=== PATIENT | female | born 1950 | race Caucasian/White ===

== ENCOUNTER 2016-07-10 09:44 | Outpatient (CLI) | payer OTHER ==
[2016-03-23 22:34] VITALS: BP 136/58
== END 2016-07-10 10:00 ==
LOC: LAB 09:44
PROVIDERS: ATTEND Family Medicine
DX: E11.9 Type 2 diabetes mellitus without complications (principal)
CPT/HCPCS: 36415; 83036

== ENCOUNTER 2016-07-23 15:16 | Outpatient (CLI) | payer OTHER ==
[2016-03-23 22:34] VITALS: BP 136/58
[2016-07-23 16:03] LABS: eGFR (African) > 60; eGFR (Non-African) 43
== END 2016-07-23 15:17 ==
LOC: LAB 15:16
PROVIDERS: ATTEND Internal Medicine Nephrology
DX: N18.9 Chronic kidney disease, unspecified (principal); E21.3 Hyperparathyroidism, unspecified
CPT/HCPCS: 36415; 80053; 83970

== ENCOUNTER 2016-07-28 13:48 | Outpatient (CLI) | payer OTHER ==
[2016-03-23 22:34] VITALS: BP 136/58
== END 2016-07-28 14:00 ==
LOC: NEPHRO 13:48
PROVIDERS: ATTEND Internal Medicine Nephrology
DX: N18.2 Chronic kidney disease, stage 2 (mild) (principal); E21.3 Hyperparathyroidism, unspecified
CPT/HCPCS: G0463

== ENCOUNTER 2016-08-17 10:51 | Emergency (ER) | payer OTHER ==
[2016-08-17] MEDS ORDERED: guaiFENesin/CODEINE PHOS 30ML BOTTLE PO ONE (11:52)
[2016-08-17] MEDS ORDERED: ONDANSETRON HCL/PF 4 MG/ 2ML VIAL IVP ONE (11:52)
[2016-08-17] MEDS ORDERED: 0.9 % SODIUM CHLORIDE 1,000 ML IV ONE (11:52)
[2016-08-17 12:53] LABS: BASOPHILS % 0.7 (0.0-1.5); EOSINOPHILS % 3.3 % (0.0-6.8); LYMPHOCYTES # 3.8 # k/uL (0.6-4.0); MEAN CORPUSCULAR HEMOGLOBIN 29.2 pg (28.0-34.0); MONOCYTES # 0.4 # k/uL (0.0-0.9); MONOCYTES % 3.5 % (0.0-11.0); NEUTROPHILS # 5.7 # k/uL (1.4-7.7)
[2016-08-17 13:11] LABS: eGFR (African) > 60; eGFR (Non-African) 43
--- NOTE | 2016-08-17 13:20 | ED Physician Documentation ---
General Adult - HISTORIAN Historian: patient - HPI Stated Complaint: cough, congestion Chief Complaint: General Adult Further Comments: yes (66 year old female patient presents complaints of cough, congestion, diarrhea, weakness, fatigue and fever for the past 3-4 days. States she has been able to eat, but has nausea with POs.) - ROS CONST: fever, weakness, chills. denies: no problems EYES/ENT: sore throat, nasal drainage, nasal congestion. denies: problems with vision CVS/RESP: cough GI/: nausea, diarrhea. denies: abdominal pain, problems urinating, vomiting MS/SKIN/LYMPH: none NEURO/PSYCH: headache, dizziness. denies: difficulty walking, difficulty with speech, anxiety, depression - PAST HX Past History: hypertension Other History: other (depression, anxiety, OA) Surgeries/Procedures: cholecystectomy, hysterectomy Allergies/Adverse Reactions: Allergies Allergy/AdvReac Type Severity Reaction Status Date / Time adhesive Allergy Verified 03/23/16 21:43 meperidine HCl [From Demerol] Allergy Verified 08/17/16 11:50 trazodone Allergy somnolence Verified 03/23/16 21:43 and hand swelling Home Medications: Ambulatory Orders Medication Instructions Recorded Ergocalciferol (Vitamin D2) 400 unit PO 08/17/16 [Vitamin D] Meloxicam [Mobic] 7.5 mg PO 08/17/16 Ondansetron HCl Rapdis [Zofran Odt] 4 mg PO Q6 #15 tab 08/17/16 - SOCIAL HX Smoking History: non-smoker - FAMILY HX Family History: No - VITAL SIGNS Vital Signs: Vital Signs Temp Pulse Resp BP Pulse Ox 97.8 F 87 18 179/80 97 08/17/16 10:55 08/17/16 10:55 08/17/16 10:55 08/17/16 10:55 08/17/16 10:55 - REVIEWED ASSESSMENTS Nursing Assessment Reviewed: Yes Vitals Reviewed: Yes Progress - Progress Progress: Patient had Flu shot in Apr 2016 ED Results Lab/Radiology - Lab Results Lab Results: Lab Results 08/17/16 08/17/16 08/17/16 12:50 12:50 11:45 WBC 10.70 K/ul K/ul (4.00-12.00) RBC 4.81 M/ul M/ul (3.90-5.20) Hgb 14.0 g/dL g/dL (12.0-16.0) Hct 43.9 % % (34.5-46.5) MCV 91.3 fl fl (80.0-100.0) MCH 29.2 pg pg (28.0-34.0) MCHC 32.0 g/dL g/dL (30.0-36.0) RDW 14.0 % % (11.3-14.3) Plt Count 318 K/mm3 K/mm3 (130-400) Neut % (Auto) 53.3 % % (39.0-79.0) Lymph % (Auto) 35.6 % % (16.0-50.0) [place] % (Auto) 3.5 % % (0.0-11.0) Eos % (Auto) 3.3 % % (0.0-6.8) Baso % (Auto) 0.7 (0.0-1.5) Neut # 5.7 # k/uL # k/uL (1.4-7.7) Lymph # 3.8 # k/uL # k/uL (0.6-4.0) [place] # 0.4 # k/uL # k/uL (0.0-0.9) Eos # 0.4 # k/uL # k/uL (0.0-0.6) Baso # 0.1 # k/uL # k/uL (0.0-0.5) Reactive Lymphs % 3.6 % % (0.0-5.0) Reactive Lymphs # 0.4 # k/uL # k/uL (0.0-0.8) Sodium 143 mmol/L mmol/L (136-145) Potassium 4.5 mmol/L mmol/L (3.5-5.0) Chloride 107 mmol/L mmol/L (98-110) Carbon Dioxide 30 mmol/L mmol/L (20-32) BUN 25 mg/dL mg/dL (10-26) Creatinine 1.3 mg/dL mg/dL (0.4-1.5) Estimated Creat Clear 67 Est GFR ( Amer) > 60 (60 - ) Est GFR (Non-Af Amer) 43 L (60 - ) Glucose 110 mg/dL H mg/dL (70-99) Calcium 9.7 mg/dL mg/dL (8.5-10.5) Total Bilirubin 0.3 mg/dL mg/dL (0.2-1.2) AST 20 U/L U/L (0-41) ALT 19 U/L U/L (0-45) Alkaline Phosphatase 87 U/L U/L (46-116) Total Protein 6.6 g/dL g/dL (6.0-8.5) Albumin 4.2 g/dL g/dL (3.0-5.5) Influenza Type A Ag Negative (NEGATIVE) Influenza Type B Ag Negative (NEGATIVE) - Orders Orders: ED Orders Category Date Time Status Place Saline Lock/IV NOW Care 08/17/16 11:52 Active CHEST 2 VIEW [CHEST P.A.&LAT 2 VIEWS] [RAD] Stat Exams 08/17/16 Taken CBC/PLATELET/DIFF Stat Lab 08/17/16 12:50 Completed CMP Stat Lab 08/17/16 12:50 Completed INFLUENZA A&B Stat Lab 08/17/16 11:45 Completed UA W/MICRO IF INDICATED Stat Lab 08/17/16 11:52 Ordered 0.9 % Sodium Chloride [Normal Saline] 1,000 ml Med 08/17/16 11:52 Discontinued IV NOW Ondansetron HCl/Pf [Zofran 4 mg/2 ml] Med 08/17/16 11:52 Discontinued 4 mg IVP NOW ONE guaiFENesin/CODEINE PHOS 30ML [Robitussin AC] Med 08/17/16 11:52 Discontinued 5 ml PO NOW ONE General Adult Physical Exam - PHYSICAL EXAM GENERAL APPEARANCE: mild distress EENT: eye inspection normal, ENT inspection normal, pharynx normal, no signs of dehydration, JUDE, no nystagmus, TM's nml RESPIRATORY: no resp distress, chest non-tender, breath sounds normal, other ( cough) CVS: reg rate & rhythm, heart sounds normal, equal pulses, no murmur, no gallop , PMI nml, no JVD, no friction rub, 24 ABDOMEN: soft, no organomegaly, normal bowel sounds, no abdominal bruit, no distension SKIN: normal color, warm/dry, NR, INT, PAL, DR EXTREMITIES: non-tender, normal range of motion, no evidence of injury, no edema , J, 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: oriented X3, CN's nml as tested, motor nml, sensation nml, mood/affect nml Discharge Clincal Impression: Viral syndrome, Cough, Nausea Prescriptions: Ondansetron HCl Rapdis [Zofran Odt] 4 mg PO Q6 #15 tab Referrals: Maurizio Mancera MD [Primary Care Provider] - 2 Days Additional Instructions: Diet: Clear liquids Sprite/7-up Juices apple, white grape Gatorade/Powerade Jello Popsicles When tolerating clear liquids, advance to bland diet - such as crackers, rice, bananas or toast Return to the emergency department or call your doctor, if you are having severe abdominal pain, fever >101.0, or if there is blood in the vomit or diarrhea, or you cannot keep down liquids or solid food. Fever: Use Tylenol or Ibuprofen as needed per package directions Tylenol 500mg po q4h prn pain Ibuprofen 800mg po TID prn pain - do not take for more than 4 days. developer prover upholstering your prescriptions at [facility]. Treat your symptoms with over the counter medications. Use over the counter lomotil as needed for diarrhea. See your primary care doctor if your symptoms do not improve in 3-5 days. Home Medications: Ambulatory Orders Ergocalciferol (Vitamin D2) [Vitamin D] 400 unit PO 08/17/16 Meloxicam [Mobic] 7.5 mg PO 08/17/16 Ondansetron HCl Rapdis [Zofran Odt] 4 mg PO Q6 #15 tab 08/17/16 Condition: Stable Disposition: 01 HOME, SELF-CARE Decision to Admit: NO Decision Time: 13:20
[2016-08-17] MEDS ORDERED: ACETAMINOPHEN 500 MG TABLET PO ONE (13:28)
[2016-08-17] MEDS ORDERED: KETOROLAC TROMETHAMINE 30 MG/1ML VIAL IVP ONE (13:28)
[2016-08-17 14:20] VITALS: BP 144/76
--- NOTE | 2016-08-17 15:06 | Diagnostic Imaging Report ---
[facility] [address] [facility] 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 The lungs are clear. There is no pleural effusion or pneumothorax identified. A cardiac device is in place. The osseous structures are normal. Impression: 1. No acute pulmonary disease. 2. Mild cardiomegaly. Electronically signed on Aug 17, 2016 12:30:12 PM BAR MACHINE OPERATOR MULTIPLE SPINDLE by: Lamont GONCALVES
== END 2016-08-17 14:10 | disposition home or self-care (01) ==
LOC: ED 10:51 → EDSTATUS 10:52 → ED 14:10
DX: J06.9 Acute upper respiratory infection, unspecified (principal); R05 Cough; R11.2 Nausea with vomiting, unspecified
CPT/HCPCS: 71020; 80053; 85025; 87400; 96361; 96374; 99283; S1016

== ENCOUNTER 2016-11-20 11:18 | Outpatient (CLI) | payer OTHER ==
[2016-11-20 12:10] LABS: EOSINOPHILS % 3.4 % (0.0-6.8); MEAN CORPUSCULAR HEMOGLOBIN 29.6 pg (28.0-34.0); MEAN CORPUSCULAR VOLUME 90.4 fl (80.0-100.0); MONOCYTES % 3.3 % (0.0-11.0); NEUTROPHILS # 8.2 # k/uL (1.4-7.7)
[2016-11-20 12:14] LABS: eGFR (African) > 60; eGFR (Non-African) 43
[2016-11-20 12:17] LABS: BASOPHILS % 1.5 (0.0-1.5)
== END 2016-11-20 11:20 ==
LOC: LAB 11:18
PROVIDERS: ATTEND Internal Medicine Nephrology
DX: N18.2 Chronic kidney disease, stage 2 (mild) (principal); E20.9 Hypoparathyroidism, unspecified
CPT/HCPCS: 36415; 80053; 83970; 85025

== ENCOUNTER 2016-11-30 12:20 | Emergency (ER) | payer OTHER ==
[2016-11-30] MEDS ORDERED: ASPIRIN 81 MG CHEW TAB ONE (12:39)
[2016-11-30] MEDS: IPRATROPIUM/ALBUTEROL SULFATE 3 ML AMPUL.NEB NEB ONE (12:44)
[2016-11-30] MEDS: ASPIRIN 81 MG CHEW TAB PO ONE (12:44)
[2016-11-30 12:46] LABS: BASOPHILS % 1.1 (0.0-1.5); EOSINOPHILS % 3.6 % (0.0-6.8); MEAN CORPUSCULAR HEMOGLOBIN 29.4 pg (28.0-34.0); MEAN CORPUSCULAR VOLUME 92.8 fl (80.0-100.0); NEUTROPHILS # 7.2 # k/uL (1.4-7.7)
--- NOTE | 2016-11-30 13:21 | ED Physician Documentation ---
Dyspnea - HISTORIAN Historian: patient - HPI Stated Complaint: short of breath Chief Complaint: Wheezing Onset: days ago (2 days) Duration: continues in ED, worse Initiating Event: upper respiratory illness Severity: moderate Exacerbated By: coughing Associated Symptoms: chills, fever, chest discomfort Further Comments: yes (66 year old female patient presents with complaints of cough, dyspnea and chest discomfort. Patient states when she woke up from her nap with chest pain. Patient states her cough has gotten worse over the past week. Patient was prescribed Ceftin 250mg po bid 11/06/2016 x 10 days for a sinusitis. 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 denies: nausea, diarrhea NEURO/PSYCH: denies: headache MS/SKIN/LYMPH: none - PAST HX Lung Disease: COPD, other (osteoporosis, neuropathy, hypothyroidism) Cardiac Disease: other (HTN) PE Risk Factors: hypertension Surgeries/Procedures: cholecystectomy, hysterectomy, other (PPM, tonsilectomy, colonoscopy 2012, Lumbar fusion L1-L5, skin CA removed, fatty tumor removed from abdomen). denies: cardiac stent Other History: diabetes Type 2 (diet controled) Allergies/Adverse Reactions: Allergies Allergy/AdvReac Type Severity Reaction Status Date / Time adhesive Allergy Verified 11/30/16 12:42 meperidine HCl [From Demerol] Allergy Verified 11/30/16 12:42 trazodone Allergy somnolence Verified 11/30/16 12:42 and hand swelling Home Medications: Ambulatory Orders Medication Instructions Recorded Ergocalciferol (Vitamin D2) 400 unit PO QDAY 08/17/16 [Vitamin D] Meloxicam [Mobic] 7.5 mg PO QDAY 08/17/16 - SOCIAL HX Smoking History: quit greater than 1 year (quit, smoked for 13 years) - FAMILY HX Family History: denies: none - VITAL SIGNS Vital Signs: Vital Signs Temp Pulse Resp BP Pulse Ox 91 H 14 195/88 94 11/30/16 13:00 11/30/16 12:33 11/30/16 12:33 11/30/16 13:00 - REVIEWED ASSESSMENTS Nursing Assessment Reviewed: Yes Vitals Reviewed: Yes Progress - Progress Progress: 1315 Discussed lab results with patient, recommended transfer to cardiology. Patient is followed by Dr Felipe at [facility]. [address] Bee at [facility], requested starting antibiotics, will re-evaluate and start anticoagulation at [facility] if needed. Lactic acid send out, cannot get timely results, will defer to [facility]. 1342 Re-evaluated chest discomfort - patient describes "something sitting on my chest, hard to breath". 89/43, will bolus with fluids and given SL nitro if BP improves. 1400 BP 102/60 - will not progress with SL nitro at this time. Rates pain 09/11 - EKG/XRAY/CT EKG: rhythm (V-paced, rate 63) XRAY: chest (bilateral LL infiltrates, right >left) - Additional EKG/XRAY/Consults Time Called: 13:30 (consult with cardiology) Consult/PCP: Patient accepted by Dr Bee ED Results Lab/Radiology - Lab Results Lab Results: Lab Results 11/30/16 11/30/16 11/30/16 12:30 12:30 12:30 WBC 19.80 K/ul H K/ul (4.00-12.00) RBC 5.11 M/ul M/ul (3.90-5.20) Hgb 15.0 g/dL g/dL (12.0-16.0) Hct 47.4 % H % (34.5-46.5) MCV 92.8 fl fl (80.0-100.0) MCH 29.4 pg pg (28.0-34.0) MCHC 31.7 g/dL g/dL (30.0-36.0) RDW 14.2 % % (11.3-14.3) Plt Count 393 K/mm3 K/mm3 (130-400) Neut % (Auto) 36.6 % L % (39.0-79.0) Lymph % (Auto) 51.8 % H % (16.0-50.0) [place] % (Auto) 3.0 % % (0.0-11.0) Eos % (Auto) 3.6 % % (0.0-6.8) Baso % (Auto) 1.1 (0.0-1.5) Neut # 7.2 # k/uL # k/uL (1.4-7.7) Lymph # 10.2 # k/uL H # k/uL (0.6-4.0) [place] # 0.6 # k/uL # k/uL (0.0-0.9) Eos # 0.7 # k/uL H # k/uL (0.0-0.6) Baso # 0.2 # k/uL # k/uL (0.0-0.5) Reactive Lymphs % 3.9 % % (0.0-5.0) Reactive Lymphs # 0.8 # k/uL # k/uL (0.0-0.8) Sodium 142 mmol/L mmol/L (136-145) Potassium 4.0 mmol/L mmol/L (3.5-5.0) Chloride 105 mmol/L mmol/L (98-110) Carbon Dioxide 33 mmol/L H mmol/L (20-32) BUN 19 mg/dL mg/dL (10-26) Creatinine 1.5 mg/dL mg/dL (0.4-1.5) Estimated Creat Clear 60 Est GFR ( Amer) 44 L (60 - ) Est GFR (Non-Af Amer) 37 L (60 - ) Glucose 181 mg/dL H mg/dL (70-99) Calcium 9.2 mg/dL mg/dL (8.5-10.5) Total Bilirubin 0.3 mg/dL mg/dL (0.2-1.2) AST 22 U/L U/L (0-41) ALT 20 U/L U/L (0-45) Alkaline Phosphatase 114 U/L U/L (46-116) Creatine Kinase 62 U/L U/L (0-225) CK-MB (CK-2) 2.6 ng/mL ng/mL (0.0-5.6) Troponin I 0.08 ng/mL H ng/mL (0.03-0.06) Total Protein 6.8 g/dL g/dL (6.0-8.5) Albumin 4.2 g/dL g/dL (3.0-5.5) - Radiology Radiology Impressions: Portal view chest Clinical history: Short of breath Findings: The heart size is mildly enlarged. Pulmonary vasculature is normal. There is mild atelectasis or infiltrate in the right lung base. No pleural effusion or pneumothorax. Impression: Atelectasis or infiltrate in the right lung base Stable cardiomegaly Electronically signed on November 30, 2016 1:14:23 PM CDT by: Reji Castellano - Orders Orders: ED Orders Category Date Time Status Continuous EKG monitoring Q30M Care 11/30/16 12:30 Active Continuous Pulse Oximetry Q30M Care 11/30/16 12:30 Active CHEST 1 VIEW [RAD] Stat Exams 11/30/16 12:30 Taken BLOOD CULTURE Stat Lab 11/30/16 Ordered CBC/PLATELET/DIFF Stat Lab 11/30/16 12:30 Completed CKMB Stat Lab 11/30/16 12:30 Completed CMP Stat Lab 11/30/16 12:30 Completed CREATINE KINASE Stat Lab 11/30/16 12:30 Completed TROPONIN I (cTnI) Stat Lab 11/30/16 12:30 Completed UA W/MICRO IF INDICATED Stat Lab 11/30/16 12:30 Ordered UA W/MICRO IF INDICATED Stat Lab 11/30/16 13:10 Ordered Aspirin Med 11/30/16 12:39 Discontinued 324 mg .ROUTE .STK-MED ONE Aspirin Med 11/30/16 12:39 Discontinued 324 mg PO NOW ONE Ipratropium/Albuterol Sulfate [Duoneb] Med 11/30/16 12:31 Discontinued 3 ml NEB NOW ONE Oxygen Daily Oxygen 11/30/16 12:30 Ordered EKG WITH COMPARISON Stat Ther 11/30/16 12:30 Ordered Dyspnea Physical Exam - EXAM General Appearance: other (ill appearing, diaphoretic patient sitting on stretcher) EENT: eye inspection normal, ENT inspection normal, pharynx normal, no signs of dehydration, JUDE, no nystagmus, TM's nml Respiratory: no pain on inspiration, speaks full sentences, accessory muscle use , wheezes (expiratory), rales (bilateral posterior ), other (O2 at 4L NC). No: retractions CVS: reg. 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 Neuro/Psych: oriented x3, CN's nml as tested, motor nml, sensation nml, mood/ affect nml Discharge Clincal Impression: CAP (community acquired pneumonia), Diaphoresis Acute NM Qualifiers: Myocardial infarction ST status: non-ST elevation myocardial infarction Qualified Code(s): I21.4 - Non-ST elevation (NSTEMI) myocardial infarction Dyspnea Qualifiers: Dyspnea type: shortness of breath Qualified Code(s): R06.02 - Shortness of breath Sepsis Qualifiers: Sepsis type: sepsis due to unspecified organism Qualified Code(s): A41.9 - Sepsis, unspecified organism Referrals: Maurizio Mancera MD [Primary Care Provider] - 2 Days Home Medications: Ambulatory Orders Ergocalciferol (Vitamin D2) [Vitamin D] 400 unit PO QDAY 08/17/16 Meloxicam [Mobic] 7.5 mg PO QDAY 08/17/16 Condition: Stable Disposition: 02 XFER SHT-TRM HOSP Decision to Admit: NO Decision Time: 13:41
[2016-11-30] MEDS ORDERED: LEVOFLOXACIN 500MG/D5W 100ML 100 ML IV ONE (13:37)
[2016-11-30] MEDS ORDERED: LEVOFLOXACIN 250MG/D5W 50ML 50 ML IV ONE (13:38)
[2016-11-30] MEDS: 0.9 % SODIUM CHLORIDE 1,000 ML IV ONE (13:49)
[2016-11-30] MEDS: LEVOFLOXACIN 250MG/D5W 50ML 250 MG in PREMIX BAG 1 BAG IV ONE (13:49)
[2016-11-30] MEDS: KETOROLAC TROMETHAMINE 30 MG/1ML VIAL IVP ONE (13:52)
[2016-11-30] MEDS: LEVOFLOXACIN 500MG/D5W 100ML 500 MG in PREMIX BAG 1 BAG IV ONE (13:58)
[2016-11-30] MEDS: NITROGLYCERIN 0.4 MG TAB.SUBL SL ONE (13:58)
[2016-11-30 14:19] VITALS: BP 102/65
--- NOTE | 2016-11-30 21:51 | Diagnostic Imaging Report ---
JANELLE HICKMAN (BATSHEVA) - ER~ [facility] [address] [address] ~ ~ ~ ~ Report Submission Date: November 30, 2016 1:14:23 PM CDT Patient ~ Study Name: SNOW FITZPATRICK ~ Date: November 30, 2016 12:49:24 PM CDT MRN: [id number] ~ Modality Type: CR Gender: F ~ Description: CHEST : 46 ~ Institution: [facility] Physician: JANELLE HICKMAN) - ER ~ ~ ~ ~ Portal view chest Clinical history: Short of breath Findings: The heart size is mildly enlarged. Pulmonary vasculature is normal. There is mild atelectasis or infiltrate in the right lung base. No pleural effusion or pneumothorax. Impression: Atelectasis or infiltrate in the right lung base Stable cardiomegaly ~ Electronically signed on November 30, 2016 1:14:23 PM CDT by: Reji GONCALVES
== END 2016-11-30 14:06 | disposition short-term general hospital (02) ==
LOC: ED 12:20
DX: A41.9 Sepsis, unspecified organism (principal); I21.4 Non-ST elevation (NSTEMI) myocardial infarction; J18.9 Pneumonia, unspecified organism
CPT/HCPCS: 71010; 80053; 82550; 82553; 84484; 85025; 87040; 93005; J1885; J1956; J7030; 96361; 96365; 96375; 96376; 99284; S1016

== ENCOUNTER 2016-12-21 13:40 | Outpatient (CLI) | payer OTHER | END 2016-12-21 14:01 | LOC: LAB 13:40 | PROVIDERS: ATTEND Family Medicine | DX: I26.99 Other pulmonary embolism without acute cor pulmonale (principal) | CPT/HCPCS: 36415; 85610 ==

== ENCOUNTER 2016-12-22 15:26 | Outpatient (CLI) | payer OTHER | END 2016-12-22 15:31 | disposition home or self-care (01) | LOC: NEPHRO 15:26 | PROVIDERS: ATTEND Internal Medicine Nephrology | DX: N18.9 Chronic kidney disease, unspecified (principal); N17.9 Acute kidney failure, unspecified; E83.52 Hypercalcemia; Z79.01 Long term (current) use of anticoagulants | CPT/HCPCS: G0463 ==

== ENCOUNTER 2016-12-25 12:16 | Outpatient (CLI) | payer OTHER ==
[2016-12-25 12:33] LABS: BASOPHILS % 0.8 (0.0-1.5); EOSINOPHILS % 2.3 % (0.0-6.8); MEAN CORPUSCULAR HEMOGLOBIN 29.4 pg (28.0-34.0); MEAN CORPUSCULAR VOLUME 90.8 fl (80.0-100.0); MONOCYTES % 2.7 % (0.0-11.0); NEUTROPHILS # 8.7 # k/uL (1.4-7.7)
[2016-12-25 13:07] LABS: eGFR (African) 38; eGFR (Non-African) 32
--- NOTE | 2016-12-25 21:19 | Diagnostic Imaging Report ---
~ [facility] [address] [facility] [address] [place], [place]. [address] ~ ~ ~ ~ Report Submission Date: Dec 25, 2016 2:06:17 PM CDT Patient ~ Study Name: SNOW FITZPATRICK ~ Date: Dec 25, 2016 1:42:47 PM CDT MRN: [id number] ~ Modality Type: CT\SR Gender: F ~ Description: CT ABD & PELVIS W/O CO : 48 ~ Institution: [facility] Physician TERRY ORTIZ ~ ~ ~ EXAMINATION: ~ CT abdomen and pelvis without contrast. ~ HISTORY: ~ Generalized abdominal pain for 1 week. ~ TECHNIQUE: ~ Transaxial computed tomographic images of the abdomen pelvis were obtained without the use of intravenous contrast according to standard protocol. ~ FINDINGS: ~ The lung bases are clear. ~The heart size is normal. ~Pacer leads extend into the right heart. ~ The liver is normal in density. ~The gallbladder is absent. ~The pancreas spleen and adrenal glands are normal. ~There is a left parapelvic cyst noted measuring approximately 3.9 cm. ~Smaller right renal cysts are present. ~There is no calculus or hydronephrosis. ~ Numerous diverticular present colon without CT evidence of acute diverticulitis. ~ There is thickening of the gastric antral/pyloric region with adjacent stranding within the perigastric fat suggesting gastritis or peptic ulcer disease. ~There is focal outpouching 1st/2nd portion duodenum which could represent small diverticular versus ulcer. ~There is no evidence of free air or fluid outside of the stomach to suggest perforation. ~ There is atherosclerosis of the aorta. ~No adenopathy is present. ~ The bladder is normal. ~Multiple injection sites are seen in the subcutaneous soft tissue of the abdomen. ~Multilevel degenerative changes present in the lumbar spine with posterior spinal fusion from L1 through L5. ~ IMPRESSION: ~ 1. Thickening of the gastric antral/pyloric region with adjacent stranding suggesting sequela of gastritis/ peptic ulcer disease. ~Endoscopic correlation may be useful. ~ 2. Small out pouching of the 1st/2nd portion the duodenum present which may represent diverticular or small ulcer. ~ 3. No evidence of perforation. ~ 4. Additional findings include atherosclerosis, left renal cyst, diverticulosis and multilevel lumbar spinal fusion. ~ Electronically signed on Dec 25, 2016 2:06:17 PM CDT by: Lamont Hdz [facility] MED[facility] CENTERLuis
== END 2016-12-25 12:30 ==
LOC: LAB 12:16
PROVIDERS: ATTEND Physician Assistant
DX: T14.8 Other injury of unspecified body region (principal); R10.11 Right upper quadrant pain; D72.829 Elevated white blood cell count, unspecified; R10.84 Generalized abdominal pain; X58.XXXA Exposure to other specified factors, initial encounter; Y93.9 Activity, unspecified; Y99.9 Unspecified external cause status
CPT/HCPCS: 36415; 74176; 80053; 85025; 85610

== ENCOUNTER 2016-12-30 11:08 | Outpatient (CLI) | payer OTHER ==
[2016-12-30 11:35] LABS: EOSINOPHILS % 2.5 % (0.0-6.8); MEAN CORPUSCULAR HEMOGLOBIN 29.3 pg (28.0-34.0); MONOCYTES % 3.5 % (0.0-11.0)
[2016-12-30 11:42] LABS: BASOPHILS % 1.1 (0.0-1.5)
[2016-12-30 11:57] LABS: eGFR (African) 38; eGFR (Non-African) 32
== END 2016-12-30 11:10 ==
LOC: LAB 11:08
PROVIDERS: ATTEND Physician Assistant
DX: D72.829 Elevated white blood cell count, unspecified (principal); K29.00 Acute gastritis without bleeding
CPT/HCPCS: 36415; 80053; 85025

== ENCOUNTER 2017-01-22 22:12 | Inpatient (IN) | payer OTHER ==
[2017-01-22] MEDS: NITROGLYCERIN 0.4 MG TAB.SUBL SL PRN ×2 (22:14→22:19)
[2017-01-22] MEDS ORDERED: ASPIRIN 81 MG CHEW TAB PO ONE (22:14)
--- NOTE | 2017-01-22 22:14 | ED Physician Documentation ---
General Adult - HISTORIAN Historian: patient - HPI Stated Complaint: chest pain Chief Complaint: General Adult Onset: hours Timing: still present Severity: moderate Further Comments: yes (Pt is a 66 yo female with chest pain, sob, diaphoresis and nausea that has been occurring all day today. Pain did not radiate to arms or neck. Pt states that she is coughing and sneezing simultaneously "a slimmy substance." Pt was d/c'd from [facility] 2.5 weeks ago after being admited for PE and b/l pneumonia. Pt was intubated there and was told she may have had a mild heart attack. Pt has ventricular pacemaker that she has had for 30 yrs. Pain intensity is 9/10. Of note, pt has hx chronic diaphoresis, which "has not been explained after many tests." Pt had been on Lasix, but this was changed recently to prn only because of worsening kidney function.) - ROS CONST: weakness, chills EYES/ENT: none CVS/RESP: chest pain, shortness of breath, cough GI/: nausea MS/SKIN/LYMPH: none - PAST HX Past History: COPD, hypertension, other (osteoporesis, neuropathy, hypothyroidism) Other History: diabetes Type 2 (diet controlled) Surgeries/Procedures: cholecystectomy, hysterectomy, other (PPM, tonsillectomy, colonscopy 2012, Lumbar fusion, skin ca removal; fatty tumor removed from abdomen; pacemaker.) Allergies/Adverse Reactions: Allergies Allergy/AdvReac Type Severity Reaction Status Date / Time adhesive Allergy Rash Verified 01/22/17 22:37 meperidine HCl [From Demerol] Allergy Hives Verified 01/22/17 22:37 trazodone Allergy somnolence Verified 01/22/17 22:39 and hand swelling Home Medications: Ambulatory Orders Medication Instructions Recorded Ergocalciferol (Vitamin D2) 400 unit PO QDAY 08/17/16 [Vitamin D] Meloxicam [Mobic] 7.5 mg PO QDAY 08/17/16 Aspirin EC [Ecotrin] 81 mg PO D 01/22/17 Atorvastatin Calcium [Atorvastatin 40 mg PO HS 01/22/17 Calcium] Calcium Citrate [Calcitrate] 1 tab PO D 01/22/17 Furosemide [Lasix] 20 mg PO DIRECTED 01/22/17 Metoprolol Succinate [Toprol XL] 25 mg PO D 01/22/17 Pnv95/Ferrous Fumarate/FA 1 tab PO D 01/22/17 [ Caplet] - SOCIAL HX Smoking History: quit greater than 1 year - FAMILY HX Family History: No - VITAL SIGNS Vital Signs: Vital Signs Temp Pulse Resp BP Pulse Ox 102/65 11/30/16 14:16 - REVIEWED ASSESSMENTS Nursing Assessment Reviewed: Yes Vitals Reviewed: Yes Progress - Progress Progress: ASA 325 mg po Nitro 0.4 mg SL x 2 Pain 02/11 --> 07/14 after Nitro Lasix 20 mg IV Daily evening meds Ropinirole 4 mg, Venlafexine 150 mg ER, Gabapentin 600 mg, given in ER. Flexeril 5 mg po given in place of Zanaflex. Admit to [facility]. Chest Pain/CHF. - EKG/XRAY/CT EKG: rhythm (paced rhythm; HR=98.) XRAY: chest (Cardiomegaly; no acute abnormality.) General Adult Physical Exam - PHYSICAL EXAM GENERAL APPEARANCE: moderate distress EENT: pharynx normal NECK: normal inspection, supple RESPIRATORY: rales (mild), other (chest tender with deep breath) CVS: reg rate & rhythm, heart sounds normal ABDOMEN: soft, no organomegaly, normal bowel sounds BACK: normal inspection, no CVA tenderness SKIN: diaphoresis EXTREMITIES: non-tender, normal range of motion, no evidence of injury NEURO: oriented X3, motor nml, sensation nml Discharge Clincal Impression: Chest pain, CHF Home Medications: Ambulatory Orders Ergocalciferol (Vitamin D2) [Vitamin D] 400 unit PO QDAY 08/17/16 Meloxicam [Mobic] 7.5 mg PO QDAY 08/17/16 Aspirin EC [Ecotrin] 81 mg PO D 01/22/17 Atorvastatin Calcium [Atorvastatin Calcium] 40 mg PO HS 01/22/17 Calcium Citrate [Calcitrate] 1 tab PO D 01/22/17 Furosemide [Lasix] 20 mg PO DIRECTED 01/22/17 Metoprolol Succinate [Toprol XL] 25 mg PO D 01/22/17 Pnv95/Ferrous Fumarate/FA [ Caplet] 1 tab PO D 01/22/17 Condition: Stable Disposition: ADMITTED INPATIENT Decision to Admit: [id number] Decision Time: 23:30
[2017-01-22] MEDS ORDERED: ONDANSETRON HCL/PF 4 MG/ 2ML VIAL IVP ONE (22:28)
[2017-01-22 22:42] LABS: BASOPHILS % 0.9 (0.0-1.5); EOSINOPHILS % 3.1 % (0.0-6.8); MEAN CORPUSCULAR HEMOGLOBIN 29.3 pg (28.0-34.0); MEAN CORPUSCULAR VOLUME 91.5 fl (80.0-100.0); MONOCYTES % 3.2 % (0.0-11.0)
--- NOTE | 2017-01-22 23:13 | Diagnostic Imaging Report ---
DEONTE SIMMONS [facility] [address] [facility] [address] [address] Report Submission Date: Jan 22, 2017 10:54:30 PM CDT Patient Study Name: SNOW FITZPATRICK Date: Jan 22, 2017 10:17:16 PM CDT MRN: [id number] Modality Type: CR Gender: F Description: CHEST : 46 Institution: [facility] Physician: DEONTE SIMMONS Chest, AP portable History: Chest pain Findings: Left subclavian transvenous pacemaker is present. There is no infiltrate, effusion or pneumothorax. The heart is enlarged. Pulmonary vascularity is normal. Since 30 Nov 2016, little change has occurred. Impression: 1. Cardiomegaly. 2. No acute abnormality. Electronically signed on Jan 22, 2017 10:54:30 PM CDT by: Yaya GONCALVES
[2017-01-22] MEDS ORDERED: FUROSEMIDE 20 MG/2 ML VIAL IVP ONE (23:14)
[2017-01-22] MEDS ORDERED: GABAPENTIN 100 MG CAPSULE PO ONE (23:28)
[2017-01-22] MEDS ORDERED: VENLAFAXINE HCL 37.5 MG CAP.ER.24H PO ONE (23:28)
[2017-01-22] MEDS ORDERED: CYCLOBENZAPRINE HCL 5 MG TABLET PO ONE (23:41)
[2017-01-22] MEDS ORDERED: traMADol HCL 50 MG TABLET PO SCH (23:45)
[2017-01-22] MEDS ORDERED: rOPINIRole HCL 1 MG TABLET PO ONE (23:45)
[2017-01-23] MEDS ORDERED: NITROGLYCERIN 0.4 MG TAB.SUBL SL ONE (00:31)
[2017-01-23 00:39] VITALS: BMI 31.1
[2017-01-23] MEDS ORDERED: SPIRONOLACTONE 25 MG TABLET PO ONE (00:39)
[2017-01-23] MEDS ORDERED: GABAPENTIN 300 MG CAPSULE ONE (00:40)
[2017-01-23] MEDS ORDERED: CALCIUM CARB 500 MG TAB.CHEW ONE (00:40)
[2017-01-23] MEDS ORDERED: METOPROLOL SUCCINATE 50 MG TAB.ER.24H PO ONE (00:40)
[2017-01-23] MEDS ORDERED: APIXABAN 2.5 MG TABLET PO ONE (00:40)
[2017-01-23] MEDS ORDERED: LISINOPRIL 20 MG TABLET ONE (00:40)
[2017-01-23] MEDS ORDERED: SALINE FLUSH 10 ML DISP.SYRIN IVF ONE (00:41)
[2017-01-23 05:27] VITALS: BP 142/88
[2017-01-23] MEDS ORDERED: ACETAMINOPHEN 325 MG TABLET PO PRN (07:45)
[2017-01-23] MEDS ORDERED: ACETAMINOPHEN 325 MG TABLET ONE (08:28)
--- NOTE | 2017-01-23 08:29 | History and Physical Report ---
History of Present Illnes - History of Present Illness Reason for Visit: Chest pain and shortness of breath resulting from CHF exacerbation History of Present Illness: 66 year old female presented to the ER overnight with chest pain and shortness of breath. She states she was scared because of her history or pneumonia earlier this year when she had similar symptoms and ended up intubated. She states her lungs felt very tight and she felt like she needed a breathing treatment but couldn't get it set up quickly enough and then the chest pain started. She notes she has had a worsening cough and has been sleeping with her head propped up the last couple of days but has been monitoring her ankles for swelling and her weight which had not changed so she did not take any lasix prior to her arrival. She states she is still coughing up foam and feels slightly nauseous but she is feeling a lot better. She denies any shortness of breath or chest pain at time of interview. She states she is feeling better now that she knows her heart and lungs are okay. She denies any other concerns today. 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 MANAGER: Peripheral neuropathy Heme/Onc: Other (DVT) Psych: Anxiety Renal/: Chronic renal insuff Endocrine: Diabetes - Past Surgical History Past Surgical History: Cholecystectomy, Hysterectomy, Tonsillectomy, Other ( Lumbar fusion, pacemaker placement ) - Past Social History Smoke: Quit (10+ years ago) Alcohol: None Drugs: None Lives: Alone - Health Maintenance Health Maintenance: Cholesterol (curret), Influenza Vaccine (current), Pneumococcal Vaccine (current) Influenza Vaccine: Current for this Influenza Season Pneumonia Vaccine: No (prevnar and pneumovax completed per patient ) Resuscitation Status: Resusciation Status Resuscitation Status Full Code Review of Systems - Review of Systems Constitutional: negative: Fever, Chills Eyes: negative: vision change ENT: negative: Nose Discharge, Mouth Pain, Throat Pain, Throat Swelling Respiratory: Cough, Sputum. negative: Shortness of Breath Cardiovascular: negative: Chest Pain, Palpitations, Edema Gastrointestinal: Nausea (mild no longer taking PPI therapy). negative: Abdominal Pain, Diarrhea, Constipation Genitourinary: negative: Dysuria, Frequency Musculoskeletal: Other (musculoskeletal rib pain - chronic - currently doing outpatient therapy) Skin: negative: Rash, Bruising Neurological: negative: Weakness, Numbness, Change in Speech, Confusion - Medications/Allergies Allergies/Adverse Reactions: Allergies Allergy/AdvReac Type Severity Reaction Status Date / Time adhesive Allergy Rash Verified 01/22/17 22:37 meperidine HCl [From Demerol] Allergy Hives Verified 01/22/17 22:37 trazodone Allergy somnolence Verified 01/22/17 22:39 and hand swelling Home Medications: Home Medications Aspirin EC [Ecotrin] 81 mg PO D 01/22/17 Atorvastatin Calcium [Atorvastatin Calcium] 40 mg PO HS 01/22/17 Calcium Citrate [Calcitrate] 1 tab PO D 01/22/17 Furosemide [Lasix] 20 mg PO DIRECTED 01/22/17 Metoprolol Succinate [Toprol XL] 25 mg PO D 01/22/17 Pnv95/Ferrous Fumarate/FA [ Caplet] 1 tab PO D 01/22/17 Current Inpatient Medications: Current Inpatient Medications Acetaminophen (Tylenol) 650 mg PO Q4H PRN PRN Reason: Fever >101 Aspirin (Ecotrin) 81 mg PO D MATTHEW Atorvastatin Calcium (Lipitor) 40 mg PO HS [facility] Calcium Carbonate (Tums) 500 mg PO D MATTHEW Furosemide (Lasix) 20 mg IVP Q12 MATTHEW Gabapentin (Neurontin) 600 mg PO TID MATTHEW Lisinopril (Prinivil) 20 mg PO DAILY MATTHEW Metoprolol Succinate (Toprol Xl) 25 mg PO DAILY MATTHEW Nitroglycerin (Nitroquick) 0.4 mg SL Q5M PRN PRN Reason: Chest Pain Last Admin: 01/22/17 22:19 Dose: 0.4 mg Ropinirole HCl (Requip) 4 mg PO HS MATTHEW Spironolactone (Aldactone) 25 mg PO DAILY MATTHEW Tramadol HCl (Ultram) 50 mg PO q6hr prn pain MATTHEW Venlafaxine HCl (Effexor Xr) 150 mg PO HS [facility] Exam - Exam Vital Signs: Vital Signs (72 hours) 01/22/17 01/23/17 01/23/17 23:43 00:00 02:00 Temperature 98.1 F 98.4 F Pulse Rate 90 74 Pulse Rate [ 91 H 74 Left Pulse ox] Respiratory 16 Rate Blood Pressure 149/85 132/70 [Left Arm] O2 Sat by Pulse 94 94 94 Oximetry 01/23/17 01/23/17 01/23/17 04:00 05:25 06:00 Temperature 97.3 F L Pulse Rate 88 84 Pulse Rate [ 112 H Left Pulse ox] Respiratory 20 Rate Blood Pressure 142/88 [Left Arm] O2 Sat by Pulse 96 95 95 Oximetry General: Alert, Oriented to Person, Oriented to Place, Oriented to Time, Cooperative, No acute distress HEENT: Atraumatic, EOMI, Mouth Mucous membr. moist/[place] Neck: Normal Range of Motion Lungs: Clear to auscultation, Normal air movement, Speaks full Sentences Cardiovascular: Regular rate Abdomen: Normal bowel sounds, Soft, No tenderness Integumentary: Normal, [place], Warm, Dry. No: Rash Extremities: No clubbing, No cyanosis, No edema, Normal pulses, No tenderness/ swelling Neurological: Normal gait, Normal speech, Strength Equal Bilat, Normal tone, Sensation intact Psych/Mental Status: Mental status NL, Mood NL, Appropriate Affect, Intact Judgment - Laboratory Results Laboratory Results: Laboratory Results 01/23/17 01/23/17 05:20 05:20 Creatine Kinase 37 CK-MB (CK-2) 2.0 Troponin I < 0.03 L Assessment/Plan - Assessment/Plan (1) Congestive heart failure Status: Acute Current Visit: Yes Qualifiers: Congestive heart failure chronicity: acute Assessment: BNP elevated in ER. Lasix given IV in ER. There is no peripheral edema. Patient was up 4 pounds since last clinic appointment. She states she is feeling much better today and denies any shortness of breath or chest pain currently. Lungs are clear to auscultation. Plan: One additional Lasix dose this morning. Will continue oral lasix for next several days at discharge. (2) Dyspnea Status: Acute Current Visit: No Qualifiers: Dyspnea type: shortness of breath Qualified Code(s): R06.02 - Shortness of breath Assessment: D-dimer negative. Troponin x2 negative. BNP elevated. Chest xray negative for infiltrate, or effusion. O2 95% on room air since arrival. Plan: Lasix resumed. Nebulizers PRN. (3) Nausea Status: Acute Current Visit: No Assessment: Patient has a history of gastritis. She has not been taking her PPI any longer. She denies any abdominal pain and is non tender to palpation of the abdomen on exam. Plan: Resume PPI. Continue upon discharge. (4) HTN (hypertension) Status: Acute Current Visit: Yes Qualifiers: Hypertension type: essential hypertension Qualified Code(s): I10 - Essential (primary) hypertension Assessment: BP is stable. Cardiac workup in ER was negative for acute event. Plan: Continue home medications. Continue BP monitoring. VTE Assessment - RISK FACTOR SCORE VTE RISK FACTOR SCORES: AGE OVER 60 YEARS, CONGESTIVE HEART FAILURE OR MYOCARDIAL INFARCTION, DOCUMENTED HX OF VTE - RISK VTE HIGH RISK: SCORE OF 3-4 (RISK PROXIMAL DVT 4-8%) PROPHYLAXIS NEEDED ( Patient on eliquis for DVT)
[2017-01-23] MEDS ORDERED: FUROSEMIDE 20 MG/2 ML VIAL IVP SCH (09:00)
[2017-01-23] MEDS ORDERED: METOPROLOL SUCCINATE 50 MG TAB.ER.24H PO SCH (09:00)
[2017-01-23] MEDS ORDERED: GABAPENTIN 300 MG CAPSULE PO SCH (09:00)
[2017-01-23] MEDS ORDERED: LISINOPRIL 20 MG TABLET PO SCH (09:00)
[2017-01-23] MEDS ORDERED: ASPIRIN EC 81 MG TABLET.DR PO SCH (09:00)
[2017-01-23] MEDS ORDERED: CALCIUM CARB 500 MG TAB.CHEW PO SCH (09:00)
[2017-01-23] MEDS ORDERED: SPIRONOLACTONE 25 MG TABLET PO SCH (09:00)
[2017-01-23] MEDS ORDERED: APIXABAN 2.5 MG TABLET PO SCH (09:00)
[2017-01-23] MEDS ORDERED: PANTOPRAZOLE SODIUM 40 MG TABLET PO ONE (09:25)
[2017-01-23] MEDS ORDERED: ALBUTEROL SULFATE 2.5 MG/0.5 ML AMPUL.NEB NEB PRN (09:26)
--- NOTE | 2017-01-23 09:51 | Discharge Summary ---
Discharge Summary - Discharge Sumary History of Present Illness: 66 year old female presented to the ER with chest pain and shortness of breath overnight. She was found to be having an exacerbation of her CHF. She was given lasix IV and was admitted to observation for additional monitoring. She denies any shortness of breath or chest pain at time of interview. She believes some of the chest pain and SOB might have been anxiety related as she was very worried after having been intubated earlier this year. She is requesting discharge at this time. She states now she is feeling much better. She has some nausea, but has not been taking her PPI and would like to resume prilosec therapy at discharge. She denies any peripheral edema, palpitations, and notes her cough is improving some already. She denies any other concerns today. Additional Instructions: Take Lasix 20mg daily for the next 5 days. Follow up with PCP in 2-3 days. Restart Omeprazole for stomach upset. Condition at Discharge: Stable Home Medications: Ambulatory Orders Medication Instructions Recorded Ergocalciferol (Vitamin D2) 400 unit PO QDAY 08/17/16 [Vitamin D] Meloxicam [Mobic] 7.5 mg PO QDAY 08/17/16 Aspirin EC [Ecotrin] 81 mg PO D 01/22/17 Atorvastatin Calcium 40 mg PO HS 01/22/17 Calcium Citrate [Calcitrate] 1 tab PO D 01/22/17 Furosemide [Lasix] 20 mg PO DIRECTED 01/22/17 Metoprolol Succinate [Toprol XL] 25 mg PO D 01/22/17 Pnv95/Ferrous Fumarate/FA 1 tab PO D 01/22/17 [ Caplet] Omeprazole 20 mg PO DAILY #30 capsule. 01/23/17 Consultations this Visit: None Procedures this Visit: None Allergies/Adverse Reactions: Allergies Allergy/AdvReac Type Severity Reaction Status Date / Time adhesive Allergy Rash Verified 01/22/17 22:37 meperidine HCl [From Demerol] Allergy Hives Verified 01/22/17 22:37 trazodone Allergy somnolence Verified 01/22/17 22:39 and hand swelling Discharge Summary: Patient will be discharged to home to follow up with PCP in 2-3 days. She will be kept on oral lasix for the next 5 days with repeat labs with PCP in 2-3 days. She is to weigh herself daily and call PCP if weight increases more than 2lbs in any 24 hour period. She will resume omeprazole therapy for reflux symptoms. Patient to return to ER with any increased shortness of breath or chest pain. Hospital Course: Patient presented to the ER. Chest xray was negative for infiltrate or effusion. D-dimer was negative. BNP was elevated and patient was started on lasix. She had a good response to the lasix and shortness of breath and chest pain resolved after a few hours. She was admitted for overnight observation and serial troponin monitoring. She has had 3 serial negative troponin draws since arrival. She continues to have a mild cough and mild nausea. She was restarted on PPI therapy which will be continued on discharge. She is requesting discharge at time of interview this morning. She will be discharged on oral lasix for 5 days to follow up with her PCP in 2-3 days. - Final Diagnosis (1) Congestive heart failure Problems: Lasix given. Patient will require close monitoring by pcp due to slightly elevated kidney function. (2) Dyspnea Problems: SOB is resolved a time of discharge. Nebulizer treatments available for patient at home. Continue daily lasix for 5 days. (3) Nausea Problems: Patient will resume PPI therapy as she has a history of gastritis. (4) HTN (hypertension) Problems: Continue home BP medications. Follow up with PCP.
[2017-01-23] MEDS ORDERED: PANTOPRAZOLE SODIUM 40 MG TABLET ONE (11:30)
[2017-01-23] MEDS ORDERED: rOPINIRole HCL 1 MG TABLET PO SCH (21:00)
[2017-01-23] MEDS ORDERED: VENLAFAXINE HCL 37.5 MG CAP.ER.24H PO SCH (21:00)
[2017-01-23] MEDS ORDERED: ATORVASTATIN CALCIUM 80 MG TABLET PO SCH (21:00)
== END 2017-01-23 13:03 | disposition home or self-care (01) | DRG 293 ==
LOC: ED 22:12 → SOUTH 23:41 → OBSVTOIN 23:41
PROVIDERS: ADMIT Physician Assistant; ATTEND Family Medicine
DX: I11.0 Hypertensive heart disease with heart failure (principal); I50.9 Heart failure, unspecified; R06.00 Dyspnea, unspecified; R11.0 Nausea
CPT/HCPCS: 71010; 80053; 82550; 82553; 83880; 84484; 85025; 85379; 85610; 85730; J1940; J2405; S1016

== ENCOUNTER 2017-01-26 15:57 | Outpatient (CLI) | payer OTHER | END 2017-01-26 16:00 | LOC: NEPHRO 15:57 | PROVIDERS: ATTEND Internal Medicine Nephrology | DX: I10 Essential (primary) hypertension (principal); I50.9 Heart failure, unspecified; N18.9 Chronic kidney disease, unspecified | CPT/HCPCS: G0463 ==

== ENCOUNTER 2017-02-25 10:07 | Outpatient (CLI) | payer OTHER | END 2017-02-25 10:10 | LOC: OUT 10:07 | PROVIDERS: ATTEND Colon & Rectal Surgery | DX: R13.10 Dysphagia, unspecified (principal) | CPT/HCPCS: G0463 ==

== ENCOUNTER 2017-03-03 15:29 | Outpatient (CLI) | payer OTHER | END 2017-03-03 15:30 | LOC: RAD 15:29 | PROVIDERS: ATTEND Colon & Rectal Surgery | DX: R13.10 Dysphagia, unspecified (principal) | CPT/HCPCS: 74230 ==

== ENCOUNTER 2017-03-10 21:16 | Emergency (ER) | payer OTHER ==
[2017-03-10] MEDS ORDERED: ASPIRIN 81 MG CHEW TAB ONE (21:29)
[2017-03-10] MEDS ORDERED: ASPIRIN 81 MG CHEW TAB PO ONE (21:31)
--- NOTE | 2017-03-10 21:35 | ED Physician Documentation ---
Dyspnea - HISTORIAN Historian: patient - HPI Chief Complaint: Dyspnea Additional Information: drove here c/o dyspnea x 3 hrs, after arrival c/o CP , diaphoresis. EKG shows paced rythym Onset: hours Duration: continues in ED Severity: severe Exacerbated By: nothing Associated Symptoms: sweating, chest pain, chest discomfort, heart racing Further Comments: no - ROS CONST: no problems EYES/ENT: none GI/: none NEURO/PSYCH: denies: headache MS/SKIN/LYMPH: none - PAST HX Lung Disease: COPD Cardiac Disease: other (pacer) PE Risk Factors: hypertension Other History: diabetes Type 2, hyperlipidemia, kidney failure Allergies/Adverse Reactions: Allergies Allergy/AdvReac Type Severity Reaction Status Date / Time adhesive Allergy Rash Verified 01/22/17 22:37 meperidine HCl [From Demerol] Allergy Hives Verified 01/22/17 22:37 trazodone Allergy somnolence Verified 01/22/17 22:39 and hand swelling Home Medications: Ambulatory Orders Medication Instructions Recorded Ergocalciferol (Vitamin D2) 400 unit PO QDAY 08/17/16 [Vitamin D] Aspirin EC [Ecotrin] 81 mg PO D 01/22/17 Calcium Citrate [Calcitrate] 1 tab PO D 01/22/17 Furosemide [Lasix] 20 mg PO DIRECTED 01/22/17 Pnv95/Ferrous Fumarate/FA 1 tab PO D 01/22/17 [ Caplet] Omeprazole 20 mg PO DAILY #30 capsule. 01/23/17 - SOCIAL HX Smoking History: non-smoker Alcohol Use: none Drug Use: none - FAMILY HX Family History: no significant history - VITAL SIGNS Vital Signs: Vital Signs Temp Pulse Resp BP Pulse Ox 142/88 01/23/17 12:27 - REVIEWED ASSESSMENTS Nursing Assessment Reviewed: Yes Vitals Reviewed: Yes Progress - Progress Progress: spoke with packaging assembler Dr. Pollard at [facility]. He agreed to have her transferred to ER there. Arranging it now. - EKG/XRAY/CT EKG: nonspecific ST T wave chg, ST elevation ED Results Lab/Radiology - Orders Orders: ED Orders Category Date Time Status Continuous EKG monitoring Q30M Care 03/10/17 21:31 Ordered Continuous Pulse Oximetry Q30M Care 03/10/17 21:31 Ordered CHEST 1 VIEW [RAD] Stat Exams 03/10/17 21:31 Ordered CBC/PLATELET/DIFF Routine Lab 03/10/17 21:31 Ordered CKMB Stat Lab 03/10/17 Ordered CMP Routine Lab 03/10/17 21:31 Ordered CREATINE KINASE Routine Lab 03/10/17 21:31 Ordered TROPONIN I (cTnI) Stat Lab 03/10/17 21:31 Ordered Aspirin Med 03/10/17 21:29 Discontinued 324 mg .ROUTE .STK-MED ONE Aspirin Med 03/10/17 21:31 Once 324 mg PO NOW ONE Oxygen Daily Oxygen 03/10/17 21:45 Ordered EKG WITH COMPARISON Stat Ther 03/10/17 21:31 Ordered Dyspnea Physical Exam - EXAM General Appearance: moderate distress EENT: ENT inspection normal, no signs of dehydration Respiratory: breath sounds nml, no pain on inspiration, speaks full sentences CVS: irregularly irreg. rhythm, tachycardia Abdomen: non-tender Skin: pallor Extremities: non-tender, edema Neuro/Psych: oriented x3 Discharge Clincal Impression: Acute coronary syndromes Chest pain Qualifiers: Chest pain type: chest pain due to myocardial ischemia Ischemic chest pain type : unspecified angina pectoris type Qualified Code(s): I20.9 - Angina pectoris, unspecified Referrals: Maurizio Mancera MD [Primary Care Provider] - 2 Days Home Medications: Ambulatory Orders Ergocalciferol (Vitamin D2) [Vitamin D] 400 unit PO QDAY 08/17/16 Aspirin EC [Ecotrin] 81 mg PO D 01/22/17 Calcium Citrate [Calcitrate] 1 tab PO D 01/22/17 Furosemide [Lasix] 20 mg PO DIRECTED 01/22/17 Pnv95/Ferrous Fumarate/FA [ Caplet] 1 tab PO D 01/22/17 Omeprazole 20 mg PO DAILY #30 capsule. 01/23/17 Condition: Serious Disposition: 02 XFER SHT-TRM HOSP Decision to Admit: NO Date of Decison to Admit: 03/10/17 Decision Time: 21:48
[2017-03-10 21:43] LABS: BASOPHILS % 1.1 (0.0-1.5); MEAN CORPUSCULAR HEMOGLOBIN 28.9 pg (28.0-34.0); MEAN CORPUSCULAR VOLUME 92.3 fl (80.0-100.0); MONOCYTES % 3.7 % (0.0-11.0); NEUTROPHILS # 8.8 # k/uL (1.4-7.7)
[2017-03-10 21:51] VITALS: BP 137/82
--- NOTE | 2017-03-10 22:46 | Diagnostic Imaging Report ---
FELICITAS LIANG [facility] [address] [facility] [address]. [address] Report Submission Date: Mar 10, 2017 9:52:04 PM CDT Patient Study Name: AMARI DECEMBER Date: Mar 10, 2017 9:29:46 PM CDT MRN: [id number] Modality Type: CR Gender: F Description: CHEST : 46 [facility]: [facility] Physician: FELICITAS LIANG Ap portable upright radiographs of the chest Clinical history: Chest pain Comparison January 22, 2017 Technique: anterior /posterior portable upright Findings: The lung betancourt are clear. The cardiomegaly is more prominent. The pacemaker is unchanged. The aorta is tortuous and calcified.. The stomach is air distended. The bony thorax is unremarkable. No pneumothorax or pleural effusion is seen. Impression: No acute pulmonary disease Unchanged pacemaker Minimally increased cardiomegaly since the previous study Air distended stomach Electronically signed on Mar 10, 2017 9:52:04 PM CDT by: Yuri GONCALVES
== END 2017-03-10 21:40 | disposition short-term general hospital (02) ==
LOC: ED 21:16
DX: I24.9 Acute ischemic heart disease, unspecified (principal); I20.9 Angina pectoris, unspecified
CPT/HCPCS: 71010; 80053; 82550; 82553; 84484; 85025; 99284; S1016